=== PATIENT | male | born 1980 ===

== ENCOUNTER 2017-08-07 09:06 | Outpatient (CLI) | payer OTHER | END 2017-08-07 09:07 | LOC: LAB 09:06 | PROVIDERS: ATTEND General Practice | DX: R79.1 Abnormal coagulation profile (principal) | CPT/HCPCS: 85610 ==

== ENCOUNTER 2018-03-23 09:42 | Outpatient (CLI) | payer OTHER | END 2018-03-23 09:43 | LOC: LAB 09:42 | PROVIDERS: ATTEND Family Medicine | DX: Z79.01 Long term (current) use of anticoagulants (principal) | CPT/HCPCS: 85610 ==